=== PATIENT | female | born 1935 | race Two or more races ===

== ENCOUNTER 2018-09-15 10:20 | Emergency (ER) | payer OTHER ==
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
== END 2018-09-15 11:49 | disposition home or self-care (01) ==
LOC: ER 10:20
DX: S13.4XXA Sprain of ligaments of cervical spine, initial encounter (principal); M62.830 Muscle spasm of back; V49.40XA Driver injured in collision with unspecified motor vehicles in traffic accident, initial encounter; I10 Essential (primary) hypertension; Z88.2 Allergy status to sulfonamides
CPT/HCPCS: 99282

== ENCOUNTER 2020-05-14 14:18 | Emergency (ER) | payer OTHER ==
--- NOTE | 2020-05-14 15:24 | EDPHYS ---
Physician Documentation [facility] Name: Carlita Valenzuela Age: 84 yrs Sex: Female : 1935 Arrival Date: 05/14/2020 Time: 14:20 Bed 6 Private MD: ED Physician Oneil Michaels HPI: 05/14 14:45 This 84 yrs old Female presents to ER via Ambulatory with complaints of Sore Throat. cp 14:45 The patient presents with sore throat. cp 14:45 Onset: The symptoms/episode began/occurred 3 day(s) ago. Associated signs and symptoms: cp Pertinent positives: nasal drainage with bloody mucous. 14:45 Severity of symptoms: in the emergency department the symptoms are unchanged, despite cp home interventions. Historical: - Allergies: 14:45 Sulfa (Sulfonamide Antibiotics); hb - Home Meds: 14:45 amlodipine oral [Active]; Folic Acid Oral [Active]; Fosamax Oral [Active]; lisinopril hb Oral [Active]; Methotrexate Sodium Oral [Active]; - PMHx: 14:45 Arthritis; Hypertension; hb - PSHx: 14:45 None; hb - Immunization history:: Adult Immunizations up to date. - Social history:: Smoking status: Patient denies any tobacco usage or history of. ROS: 14:50 Constitutional: Negative for body aches, chills, fever, poor PO intake. cp 14:50 Eyes: Negative for injury, pain, redness, and discharge. cp 14:50 ENT: Positive for sinus congestion, sore throat, Negative for drainage from ear(s), ear pain, difficulty swallowing. 14:50 Respiratory: Negative for cough, shortness of breath, wheezing. 14:50 Abdomen/GI: Negative for abdominal pain, nausea, vomiting, and diarrhea. 14:50 Skin: Negative for rash. 14:50 Neuro: Positive for headache, Negative for altered mental status, syncope, weakness. 14:50 All other systems are negative. Exam: 14:55 Constitutional: The patient appears in no acute distress, alert, awake, non-toxic, well cp developed, well nourished. 14:55 Head/Face: Normocephalic, atraumatic. cp 14:55 Eyes: Periorbital structures: appear normal, Conjunctiva: normal, no exudate, no injection, Sclera: no appreciated abnormality, Lids and lashes: appear normal, bilaterally. 14:55 ENT: External ear(s): are unremarkable, Ear canal(s): are normal, clear, TM's: bulging, on the left, erythema, is not appreciated, bilaterally, Nose: is normal, Mouth: Lips: moist, Oral mucosa: moist, Posterior pharynx: Airway: no evidence of obstruction, patent, swelling, is not appreciated, erythema, that is mild, exudate, is not appreciated. 14:55 Neck: ROM/movement: is normal, is supple, without pain, no range of motions limitations, no meningismus, Lymph nodes: no appreciated lymphadenopathy. 14:55 Chest/axilla: Inspection: normal, Palpation: is normal, no crepitus, no tenderness. 14:55 Cardiovascular: Rate: normal, Rhythm: regular. 14:55 Respiratory: the patient does not display signs of respiratory distress, Respirations: normal, no use of accessory muscles, no retractions, labored breathing, is not present, Breath sounds: are clear throughout, no decreased breath sounds, no stridor, no wheezing. 14:55 Abdomen/GI: Exam negative for discomfort, distension, guarding. Vital Signs: 14:43 BP 166 / 69; Pulse 71; Resp 16; Temp 97.8; Pulse Ox 96% on R/A; Pain 3/10; hb MDM: 14:41 Patient medically screened. cp 15:24 Data reviewed: vital signs, nurses notes, lab test result(s). ED course: VSS. Will cp treat for bacterial sinusitis due to reported symptoms of bloody, colored sinus drainage and patient's history of immunosuppression with methotrexate. 05/14 14:46 Order name: Strep cp 05/14 15:17 Order name: Throat Culture EDMS Administered Medications: No medications were administered Disposition: 05/14/20 15:23 Discharged to Home. Impression: Acute sinusitis. - Condition is Stable. - Discharge Instructions: Sinusitis, Adult. - Prescriptions for Amoxicillin 875 mg Oral Tablet - take 1 tablet by ORAL route every 12 hours for 10 days; 20 tablet. - Medication Reconciliation Form, Thank You Letter, Antibiotic Education, Prescription Opioid Use form. - Follow up: Private Physician; When: 2 - 3 days; Reason: Worsening of condition. - Problem is new. - Symptoms are unchanged. Addendum: 05/16/2020 06:10 Co-signature as Attending Physician, Oneil Michaels MD I agree with the assessment and c waite plan of care. Signatures: Dispatcher [employer] EDOneil Sky MD MD cha Page, Corey, PA PA cp Rasheeda Stevenson, RN RN hb Corrections: (The following items were deleted from the chart) 05/14 14:54 14:46 The patient presents with sore throat, cp cp 14:54 14:46 This 84 yrs old Female presents to ER via Ambulatory with complaints of Sore cp Throat. cp 15:40 15:23 05/14/2020 15:23 Discharged to Home. Impression: Acute sinusitis. Condition is hb Stable. Forms are Medication Reconciliation Form, Thank You Letter, Antibiotic Education, Prescription Opioid Use. Follow up: Private Physician; When: 2 - 3 days; Reason: Worsening of condition. Problem is new. Symptoms are unchanged. cp
--- NOTE | 2020-05-14 15:24 | ER ---
Nurse's Notes [facility] Name: Carlita Valenzuela Age: 84 yrs Sex: Female : 1935 Arrival Date: 05/14/2020 Time: 14:20 Bed 6 Private MD: Diagnosis: Acute sinusitis Presentation: 05/14 14:43 Chief complaint: Sinus congestion and drainage, sore throat, and headache x 2-3 days. hb Coronavirus screen: Client presents with at least one sign or symptom that may indicate coronavirus-19. Standard/surgical mask placed on the client. Provider contacted for isolation considerations. Ebola Screen: No symptoms or risks identified at this time. Initial Sepsis Screen: Does the patient meet any 2 criteria? No. Patient's initial sepsis screen is negative. Does the patient have a suspected source of infection? No. Patient's initial sepsis screen is negative. Risk Assessment: Do you want to hurt yourself or someone else? Patient reports no desire to harm self or others. Onset of symptoms was May 12, 2020. 14:43 Method Of Arrival: Ambulatory 14:43 Acuity: JEAN 4 hb Triage Assessment: 14:45 General: Appears in no apparent distress. Behavior is calm, cooperative. Pain: Pain hb currently is 3 out of 10 on a pain scale. EENT: Reports nasal congestion nasal discharge. Neuro: Level of Consciousness is awake, alert, obeys commands, Oriented to person, place, time, situation. Cardiovascular: Capillary refill < 3 seconds Patient's skin is warm and dry. Respiratory: Respiratory effort is even, unlabored, Respiratory pattern is regular, symmetrical. GI: No signs and/or symptoms were reported involving the gastrointestinal system. : No signs and/or symptoms were reported regarding the genitourinary system. Derm: Skin is pink, warm \T\ dry. Musculoskeletal: No signs and/or symptoms reported regarding the musculoskeletal system. Historical: - Allergies: 14:45 Sulfa (Sulfonamide Antibiotics); hb - Home Meds: 14:45 amlodipine oral [Active]; Folic Acid Oral [Active]; Fosamax Oral [Active]; lisinopril hb Oral [Active]; Methotrexate Sodium Oral [Active]; - PMHx: 14:45 Arthritis; Hypertension; hb - PSHx: 14:45 None; hb - Immunization history:: Adult Immunizations up to date. - Social history:: Smoking status: Patient denies any tobacco usage or history of. Screenin:46 Abuse screen: Denies threats or abuse. Denies injuries from another. Nutritional hb screening: No deficits noted. Tuberculosis screening: No symptoms or risk factors identified. Fall Risk None identified. Assessment: 14:46 General: see triage assessment . hb 15:39 Reassessment: Patient appears in no apparent distress at this time. Patient and/or hb family updated on plan of care and expected duration. Pain level reassessed. Patient is alert, oriented x 3, equal unlabored respirations, skin warm/dry/pink. Vital Signs: 14:43 BP 166 / 69; Pulse 71; Resp 16; Temp 97.8; Pulse Ox 96% on R/A; Pain 3/10; hb ED Course: 14:20 Patient arrived in ED. ds1 14:40 Oneil Gordon PA is PHCP. cp 14:40 Oneil Michaels MD is Attending Physician. cp 14:43 Rasheeda Stevenson, RN is Primary Nurse. hb 14:44 Triage completed. hb 14:45 Arm band placed on. hb 14:46 Patient has correct armband on for positive identification. Bed in low position. Call hb light in reach. 15:40 No provider procedures requiring assistance completed. Patient did not have IV access hb during this emergency room visit. Administered Medications: No medications were administered Outcome: 15:23 Discharge ordered by . cp 15:40 Discharged to home ambulatory. hb 15:40 Condition: stable 15:40 Discharge instructions given to patient, Instructed on discharge instructions, follow up and referral plans. medication usage, Demonstrated understanding of instructions, follow-up care, medications, Prescriptions given X 1. 15:40 Patient left the ED. hb Signatures: Ericka Candelaria ds1 Oneil Gordon PA PA cp Rasheeda Stevenson, RN RN hb
[2020-05-14 15:45] VITALS: BP 166/69; TEMP 97.8; O2SAT 96
== END 2020-05-14 15:40 | disposition home or self-care (01) ==
LOC: ER 14:18
DX: J01.90 Acute sinusitis, unspecified (principal); I10 Essential (primary) hypertension; Z88.2 Allergy status to sulfonamides
CPT/HCPCS: 87070; 87081; 99282

== ENCOUNTER 2022-08-13 09:43 | Emergency (ER) | payer OTHER, BC ==
--- OUTSIDE RECORDS SUMMARY | 2022-08-13 09:47 | XMS REPORT | Continuity of Care Document ---
:1935 Author Organization [facility] t Address [address] [facility] [address] [place] [id number] Care Team Providers Name Role Phone PCP, PATIENT DOES NOT HAVE A Primary Care Physician Unavaila IMAN Hewitt Attending Clinician Unavailable Luz Ewing MD Attending Clinician Chasity Jung Attending Clinician LUZ EWING Attending Clinician Unavailable Doctor Unassigned, [place] Attending Clinician Unavailable Iman Renae DO Attending Clinician GISEL MCKOY Attending Clinician Unavailable Payers Payer Name Policy Type Policy Number Effective Date Expiration Date Megan rodriguez MEDICARE-PART B 5 [id number] 2020 00:00:00 MEDICARE PART A [id number] 2002 \T\ B 00:00:00 Problems Condition Condition Condition Status Onset Resolution Last Treating Co mments Source Name Details Category Date Date Treatment Clinician Date Other Other Disease Active Christy hyperlipid hyperlipid -19 Se ybold emia emia 00:00: 00 Essential Essential Disease Active Lee y hypertensi hypertensi -19 Se ybold on on 00:00: 00 RA RA Disease Active Christy (rheumatoi (rheumatoi 19 Se ybold d d 00:00: arthritis) arthritis) 00 Osteoporos Osteoporos Disease Active K elsey is is 5- Seybold 00:00: 00 No known No known Disease Unive rs active active ity of problems problems [facility] Allergies, Adverse Reactions, Alerts Allergy Allergy Status Severity Reaction(s) Onset Inactive Treating Comm ents Source Name Type Date Date Clinician NO KNOWN Drug Active Univers ALLERGIE Class ity of S [facility] Social History Social Habit Start Date Stop Date Quantity Comments Source Exposure to 2021-08-20 2021-08-30 Not sure [facility] SARS-CoV-2 (event) 00:00:00 11:07:00 Medica l Horatio Tobacco use and 2021-08-30 2021-08-30 Never used [facility] exposure 00:00:00 00:00:00 Medical Branch Education 2021-05-10 2021-05-10 12 Christy Seybold 00:00:00 00:00:00 Sex [birth year] [facility] 00:00:00 00:00:00 [facility] Smoking Status Start Date Stop Date Source Unknown if ever smoked [facility] Never smoker [facility] Medications Ordered Filled Start Stop Current Ordering Indication Dosage Frequency Signature Comments Components Source Medication Medication Date Date Medication? Clinician (SIG) Name Name triamcinolo 2021- No [id number] 40mg Univers ne 08-30 ity of acetonide 17:30: 16:48 [place] (KE[place]) 00 :00 Medical injection Branch 40 mg triamcinolo 2021- No [id number] 40mg 40 mg, Univers ne 08-30 Intramuscu ity of acetonide 17:30: 16:48 [place], ONCE, [place] ([place] 00 :00 1 dose, On Medi mayo injection Wed Branch 40 mg 08/30/21 at 1230, Routine foLIC acid Yes 1mg Take 1 mg Un jay 1 mg tablet 15 by mouth ity of 11:10: daily. [place] [id number] Medical Branch sodium Yes Inject Christy chloride 2-23 into the Seybold 0.9 % SOLN 15:48: vein once 250 mL with 29 Infliximab 100 MG SOLR Amlodipine Yes [id number] 2.5mg Take 1 Christy Besylate 2-23 tablet Seybold 2.5 MG oral 00:00: (2.5 mg Tablet 00 total) by mouth daily Alendronate Yes [id number] 70mg Take 1 Christy Sodium 70 2-23 tablet (70 Seyb old MG oral 00:00: mg total) Tablet 00 by mouth every 7 days . Take with full glass of water. Take first thing in the morning before breakfast or taking other medication . Wait 30 minutes before eating any food or taking any other medication . Avoid laying down for 30 minutes. Amlodipine 2021- No [id number] 2.5mg Take 1 Christy Besylate 2-09 - tablet Seybold 2.5 MG oral 00:00: 00:00 (2.5 mg Tablet 00 :00 total) by mouth daily Lisinopril Yes [id number] 40mg Take 1 K elsey 40 MG oral 8-19 tablet (40 Sey bold Tablet 00:00: mg total) 00 by mouth daily for hypertensi on. Atorvastati Yes [id number] 10mg Take 1 Christy n Calcium 8-19 tablet (10 Seyb old 10 MG oral 00:00: mg total) Tablet 00 by mouth daily Alendronate 2021- No [id number] 70mg Take 1 Christy Sodium 70 5-19 - tablet (70 Sey bold MG oral 00:00: 00:00 mg total) Tablet 00 :00 by mouth every 7 days . Take with full glass of water. Take first thing in the morning before breakfast or taking other medication . Wait 30 minutes before eating any food or taking any other medication . Avoid laying down for 30 minutes. Restasis Yes 1[drp] Place 1 Fatoumata ey 0.05 % 5-17 drop into Seybold ophthalmic 00:00: both eyes Emulsion 00 2 times daily Folic Acid Yes TAKE 1 Kelse y 1 MG oral 3-12 TABLET BY Seybo ld tablet 00:00: MOUTH ONCE 00 DAILY FOR 90 DAYS Methotrexat Yes TAKE 3 Fatoumata ey e Sodium 3-12 TABLETS BY Seybo ld 2.5 MG oral 00:00: MOUTH ONCE Tablet 00 A WEEK Immunizations Ordered Immunization Filled Immunization Date Status Commen ts Source Name Name Influenza Virus 2021-01-16 Completed Christy Se ybold Vaccine, 00:00:00 Quadrivalent, High Dose, Age 65 And Up Covid-19 Vaccine 2020-07-07 Completed Christy spear Moderna (Spikevax), 00:00:00 Mrna-lnp, Nathan Protein, Pf Covid-19 Vaccine 2020-07-01 Completed Christy spear Moderna (Spikevax), 00:00:00 Mrna-lnp, Nathan Protein, Pf Covid-19 Vaccine 2020-06-16 Completed Chirsty spear Moderna (Spikevax), 00:00:00 Mrna-lnp, Nathan Protein, Pf Covid-19 Vaccine 2020-06-06 Completed Christy spear Moderna (Spikevax), 00:00:00 Mrna-lnp, Nathan Protein, Pf Influenza Virus 2019-12-23 Completed Christy Whitt ybold Vaccine, age 6 00:00:00 months and up Influenza Virus 2019-01-15 Completed Christy Whitt ybold Vaccine, age 6 00:00:00 months and up Tdap- (Boostrix, 2017-06-25 Completed Christy spear Adacel) 00:00:00 Influenza Virus 2017-01-08 Completed Christy aguileraold Vaccine, age 6 00:00:00 months and up Shingles SQ 2013-08-04 Completed Christy Gutierrez d (Zostavax) 00:00:00 Vital Signs Vital Name Observation Time Observation Value Comments Source Systolic blood 2021-08-30 16:16:00 157 mm[Hg] Univer sity of pressure [facility] Diastolic blood 2021-08-30 16:16:00 82 [facility]Hg[facility] 2021-08-30 16:11:00 68 /min [facility] Body temperature 2021-08-30 16:11:[address] [facility] 2021-08-30 16:11:00 18 /min [facility] Body height 2021-08-30 16:11:00 147.3 cm [facility] Body weight 2021-08-30 16:11:00 42.094 kg [facility] BMI 2021-08-30 16:11:00 19.40 kg/m2 [facility] Oxygen saturation in 2021-08-30 16:11:00 94 /min [facility] blood by [facility] Pulse oximetry Branch Systolic blood 2021-05-10 21:45:00 165 mm[Hg] Christy Whittybchloé pressure Diastolic blood 2021-05-10 21:45:00 83 mm[Hg] Hazel y Seybold pressure Heart rate 2021-05-10 21:45:00 76 /min Christy spear Body temperature 2021-05-10 21:45:00 37 Tiki Fatoumata ey Seybold Respiratory rate 2021-05-10 21:45:00 14 /min Fatoumata Oliver Body height 2021-05-10 21:45:00 147.3 cm Christy quesadabojovi Body weight 2021-05-10 21:45:00 42.547 kg Christy quesadabojovi BMI 2021-05-10 21:45:00 19.60 kg/m2 Christy quesadabehzad Procedures Procedure Date / Time Performed Performing Clinician [facility] e CONSENT/REFUSAL FOR 2021-08-30 15:59:25 Doctor Unassigned, No [facility] DIAGNOSIS AND [facility] TREATMENT ASSIGNMENT OF BENEFITS 2021-08-30 15:59:05 Doctor Unassigned, No [facility] Encounters Start End Encounter Admission Attending Care Care Encounter Source Date/Time Date/Time Type Type Clinicians Facility Department ID 2022-04-24 2022-04-24 Outpatient CHRISTY RENAE [id number] Christy 00:00:00 00:00:00 IMAN echols 2022-02-28 2022-02-28 Outpatient CHRISTY RENAE [id number] Christy 00:00:00 00:00:00 IMAN Hernandezol onesimo 2021-08-30 2021-08-30 Luz Gibson [facility] [id number] [facility] 11:00:00 11:35:16 [id number] [facility] [id number] Igor as ANKITA?BLEA [id number] [address] MEDICAL OFFICE BUILDING 2021-08-30 2021-08-30 Outpatient Rasheeda EWING [facility] [id number] Univers 11:00:00 11:35:16 LUZ ity of [facility] 2021-08-30 2021-08-30 Orders Doctor VINCENT [id number] Univers 00:00:00 00:00:00 Only Unassigned, FABI [id number] ity of [place] [facility] [id number] Igor as [phone] [address] 2021-05-10 2021-05-10 Office Lazarus Renae [id number] Christy 16:00:00 16:30:00 Visit Iman Cornelius [id number] Se moisés [id number] 2021-04-26 2021-04-26 Outpatient CHRISTY MCKOY [id number] Christy 00:00:00 00:00:00 GISEL Sewillyol d 2021-03-16 2021-03-16 Outpatient CHRISTY MCKOY [id number] Christy 00:00:00 00:00:00 GISEL Seybol onesimo 2020-11-22 2020-11-22 Outpatient CHRISTY MCKOY [id number] Christy 00:00:00 00:00:00 GISEL Seybol d 2020-11-03 2020-11-03 Outpatient CHRISTY MCKOY [id number] Christy 09:00:00 09:00:00 GISEL Seybol d 2020-10-04 2020-10-04 Outpatient CHRISTY MCKOY [id number] Christy 11:30:00 11:30:00 GISEL Seybol d 2020-09-30 2020-09-30 Outpatient CHRISTY MCKOY [id number] Christy 10:30:00 10:30:00 GISEL Whittybol onesimo Results This patient has no known results.
[2022-08-13] MEDS ORDERED: IBUPROFEN 200 MG TAB PO ONE (10:21)
--- NOTE | 2022-08-13 10:40 | RAD REPORT ---
EXAM DESCRIPTION: CTSpine Lumbar Wo Con08/13/2022 10:18 am CLINICAL HISTORY: Left leg radiculopathy COMPARISON: None TECHNIQUE: Computed axial tomography lumbar spine was obtained with coronal and sagittal reconstruct ion. All CT scans are performed using dose optimization technique as appropriate and may include automated exposure control or mA/KV adjustment according to patient size. FINDINGS: Small to moderate left lateral disc herniation L3-4. Mild anterior subluxation L4 on L5. No fracture or dislocation Tiny nonobstructing left renal calculus. IMPRESSION: Small to moderate left lateral disc herniation L3-4. Nonemergent MRI lumbar spine recomm ended
--- NOTE | 2022-08-13 10:41 | RAD REPORT ---
EXAM DESCRIPTION: RAD - Hip Left 2 View - 08/13/2022 10:26 am CLINICAL HISTORY: Left hip pain FINDINGS: An old fracture left inferior pubic ramus. No acute fracture or dislocation Mild osteoarthritis left hip
--- NOTE | 2022-08-13 11:07 | EDPHYS ---
Physician Documentation [facility] Name: Carlita Valenzuela Age: 87 yrs Sex: Female : 1935 Arrival Date: 08/13/2022 Time: 09:43 Bed 13 Private MD: Mikael Cortes V ED Physician Mitchell Loera HPI: 08/13 10:38 This 87 yrs old [place] Female presents to ER via Ambulatory with complaints of Hip rn Pain. 10:38 The patient or guardian reports pain. The complaints affect the left leg and left hip. rn Onset: The symptoms/episode began/occurred 3 day(s) ago. Modifying factors: The symptoms are alleviated by nothing, the symptoms are aggravated by any movement. Associated signs and symptoms: Loss of consciousness: the patient experienced no loss of consciousness, Pertinent positives: None. Pertinent negatives: abdominal pain, chest pain, dysuria, fever, incontinence, vomiting, weakness. Severity of symptoms: At their worst the symptoms were moderate, in the emergency department the symptoms are unchanged. The patient has not experienced similar symptoms in the past. The patient has not recently seen a physician. Pt reports left back and hip pain, radiates down left leg, no trauma/fall. No fever. Reports better when laying still and sitting, worse with ambulation and movement. NO weakness. No urinary symptoms. No abd pain or discomfort. Points to top of left buttocks when identifying pain.. Historical: - Allergies: 10:05 Sulfa (Sulfonamide Antibiotics); ap3 - PMHx: 10:05 Arthritis; Hypertension; ap3 - Immunization history:: Client reports receiving the 2nd dose of the Covid vaccine. - Social history:: Smoking status: Patient denies any tobacco usage or history of. - Family history:: not pertinent. - Hospitalizations: : No recent hospitalization is reported. ROS: 10:38 Constitutional: Negative for fever, chills, and weight loss, Neck: Negative for injury, rn pain, and swelling, Cardiovascular: Negative for chest pain, palpitations, and edema, Respiratory: Negative for shortness of breath, cough, wheezing, and pleuritic chest pain, Abdomen/GI: Negative for abdominal pain, nausea, vomiting, diarrhea, and constipation, Back: + low back pain : Negative for injury, bleeding, discharge, and swelling, MS/Extremity: + left hip pain Skin: Negative for injury, rash, and discoloration, Neuro: Negative for headache, weakness, numbness, tingling, and seizure. Exam: 10:38 Constitutional: This is a well developed, well nourished patient who is awake, alert, rn and in no acute distress. Head/Face: Normocephalic, atraumatic. Cardiovascular: Regular rate and rhythm. No pulse deficits. Respiratory: No increased work of breathing, no retractions or nasal flaring. Abdomen/GI: soft, non-tender Back: No spinal tenderness. No costovertebral tenderness Skin: Warm, dry MS/ Extremity: Pulses equal, no cyanosis. Neurovascular intact. Able to flex and extend at left hip with mild discomfort. Able to ambulate without assistance, slight limp Neuro: Awake and alert, GCS 15, oriented to person, place, time, and situation. Cranial nerves II-XII grossly intact. Motor strength 5/5 in all extremities. Sensory grossly intact. Antalgic gait. Vital Signs: 10:03 BP 156 / 74; Pulse 75; Resp 17; Temp 97.7; Pulse Ox 98% ; Weight 43.09 kg; ap3 MDM: 09:50 Patient medically screened. rn 11:05 Differential diagnosis: bursitis, arthritis, strain, radiculopathy, low back pain, disc rn problem, disc herniation. Data reviewed: vital signs, nurses notes, radiologic studies, CT scan, plain films, and as a result, I will discharge patient. Counseling: I had a detailed discussion with the patient and/or guardian regarding: the historical points, exam findings, and any diagnostic results supporting the discharge/admit diagnosis, radiology results, the need for outpatient follow up, to return to the emergency department if symptoms worsen or persist or if there are any questions or concerns that arise at home. Special discussion: I discussed with the patient/guardian in detail that at this point there is no indication for admission to the hospital. It is understood, however, that if the symptoms persist or worsen the patient needs to return immediately for re-evaluation. Based on the history and exam findings, there is no indication for further emergent testing or inpatient evaluation. I discussed with the patient/guardian the need to see the back specialist for further evaluation of the symptoms. 08/13 10:09 Order name: CT Lumbar Spine Wo Con; Complete Time: 10:43 rn 08/13 10:09 Order name: XRAY Hip LEFT 2 view; Complete Time: 10:43 rn Administered Medications: 10:29 Drug: Ibuprofen PO 600 mg Route: PO; ap3 11:29 Follow up: Response: No adverse reaction ap3 Disposition Summary: 08/13/22 11:06 Discharge Ordered Location: Home rn Problem: new rn Symptoms: have improved rn Condition: Stable rn Diagnosis - Radiculopathy, lumbar region rn - Osteoarthritis of hip, unspecified rn Followup: rn - With: Private Physician - When: As needed - Reason: Recheck today's complaints, Re-evaluation by your physician Discharge Instructions: - Discharge Summary Sheet rn - Arthritis rn - Lumbosacral Radiculopathy rn - Back Exercises rn Forms: - Medication Reconciliation Form rn - Thank You Letter rn - Antibiotic rn patient services - Prescription Opioid Use rn Prescriptions: - Medrol (Simón) 4 mg Oral Tablets, Dose Pack - take 1 tablet by ORAL route as directed - follow package instructions; 1 rn packet; Refills: 0, Product Selection Permitted - Cyclobenzaprine 5 mg Oral Tablet - take 1 tablet by ORAL route every 8-12 hours As needed; 10 tablet; Refills: 0, rn Product Selection Permitted Signatures: Dispatcher [employer] EDMitchell Stoner MD MD rn Lupe Oliver RN RN ap3
--- NOTE | 2022-08-13 11:07 | ER ---
Nurse's Notes [facility] Name: Carlita Valenzuela Age: 87 yrs Sex: Female : 1935 Arrival Date: 08/13/2022 Time: 09:43 Bed 13 Private MD: Mikael Cortes V Diagnosis: Radiculopathy, lumbar region;Osteoarthritis of hip, unspecified Presentation: 08/13 10:03 Chief complaint: Patient states: she started having left hip pain that radiates into ap3 her left leg on Saturday08/11/2022. Coronavirus screen: At this time, the client does not indicate any symptoms associated with coronavirus-19. Ebola Screen: No symptoms or risks identified at this time. Initial Sepsis Screen: Does the patient meet any 2 criteria? No. Patient's initial sepsis screen is negative. Does the patient have a suspected source of infection? No. Patient's initial sepsis screen is negative. Risk Assessment: Do you want to hurt yourself or someone else? Patient reports no desire to harm self or others. Onset of symptoms was August 11, 2022. 10:03 Method Of Arrival: Ambulatory ap3 10:03 Acuity: JEAN 4 ap3 Triage Assessment: 10:05 General: Appears in no apparent distress. Behavior is calm, cooperative, appropriate ap3 for age. Pain: Complains of pain in left hip Pain radiates to left leg Pain began 2-3 days ago. Neuro: Level of Consciousness is awake, alert, obeys commands, Oriented to person, place, time, situation, Gait is with cane. Cardiovascular: Patient's skin is warm and dry. Respiratory: Airway is patent Respiratory effort is even, unlabored, Respiratory pattern is regular, symmetrical. Historical: - Allergies: 10:05 Sulfa (Sulfonamide Antibiotics); ap3 - PMHx: 10:05 Arthritis; Hypertension; ap3 - Immunization history:: Client reports receiving the 2nd dose of the Covid vaccine. - Social history:: Smoking status: Patient denies any tobacco usage or history of. - Family history:: not pertinent. - Hospitalizations: : No recent hospitalization is reported. Screenin:06 Abuse screen: Denies threats or abuse. Nutritional screening: No deficits noted. ap3 Tuberculosis screening: No symptoms or risk factors identified. 11:28 [facility] ED Fall Risk Assessment (Adult) History of falling in the last 3 months, ap3 including since admission Yes- single mechanical fall (1 pt) Confusion or Disorientation No (0 pts) Intoxicated or Sedated No (0 pts) Impaired Gait Yes (1 pt) Mobility Assist Device Used Yes (1 pt) Altered Elimination No (0 pt) Score/Fall Risk Level. Assessment: 10:52 Reassessment: Patient and/or family updated on plan of care and expected duration. Pain ap3 level reassessed. Patient is alert, oriented x 3, equal unlabored respirations, skin warm/dry/pink. Vital Signs: 10:03 BP 156 / 74; Pulse 75; Resp 17; Temp 97.7; Pulse Ox 98% ; Weight 43.09 kg; ap3 ED Course: 09:46 Patient arrived in ED. im 09:46 Mikael Cortes MD is Private Physician. im 09:50 Mitchell Loera MD is Attending Physician. rn 10:03 Lupe Oliver RN is Primary Nurse. ap3 10:05 Triage completed. ap3 10:06 Arm band placed on right wrist. ap3 10:06 Patient has correct armband on for positive identification. Bed in low position. Call ap3 light in reach. Pulse ox on. NIBP on. Door closed. Noise minimized. 10:19 CT Lumbar Spine Wo Con In Process Unspecified. EDMS 10:27 XRAY Hip LEFT 2 view In Process Unspecified. EDMS 11:28 No provider procedures requiring assistance completed. Patient did not have IV access ap3 during this emergency room visit. Administered Medications: 10:29 Drug: Ibuprofen PO 600 mg Route: PO; ap3 11:29 Follow up: Response: No adverse reaction ap3 Medication: 11:29 VIS not applicable for this client. ap3 Outcome: 11:06 Discharge ordered by . rn 11:28 Discharged to home ambulatory. ap3 11:28 Condition: good 11:28 Discharge instructions given to patient, Instructed on discharge instructions, follow up and referral plans. medication usage, Demonstrated understanding of instructions, follow-up care, medications, Prescriptions given X 2. 11:29 Patient left the ED. ap3 Signatures: Dispatcher [employer] EDMS Mitchell Loera MD MD rn Prokisch, Amanda, RN RN ap3 Shauna Bhakta im
[2022-08-13 11:52] VITALS: BP 156/74; TEMP 97.7; O2SAT 98
== END 2022-08-13 11:29 | disposition home or self-care (01) ==
LOC: ER 09:43
DX: M16.12 Unilateral primary osteoarthritis, left hip (principal); M54.16 Radiculopathy, lumbar region; I10 Essential (primary) hypertension; Z88.2 Allergy status to sulfonamides
CPT/HCPCS: 72131; 99284